=== PATIENT | male | born 1935 | race Caucasian/White ===

== ENCOUNTER 2020-05-09 15:52 | Inpatient (IN) ==
[2020-05-09] MEDS ORDERED: Ondansetron 4 MG/2 ML VIAL IVP PRN (19:14)
[2020-05-09] MEDS ORDERED: Naloxone 0.4 MG/ML INJ IVP PRN (19:14)
[2020-05-09] MEDS ORDERED: Perflutren Lipid Microsphere 1.3 ML in 0.9 % Sodium Chloride 8.7 ML IVP PRN (19:23)
[2020-05-09 20:10] LABS: Basophils % 0.3 %; Eosinophils % 0.2 %; Hematocrit 45.7 % (37.5-50.1); Hemoglobin 14.8 g/dL (12.9-16.9); Immature Granulocytes % 0.6 % (0-4); Lymphocytes # 1.4 K/mcL (0.6-4.6); Lymphocytes % 15.4 %; Mean Corpuscular HGB Conc 32.4 g/dL (31.6-35.5); Mean Corpuscular Hemoglobin 28.5 pg (28.0-33.3); Mean Corpuscular Volume 87.9 fL (83.0-100.0); Mean Platelet Volume 9.5 fL (9.4-12.4); Monocytes # 0.9 K/mcL (0.0-1.3); Monocytes % 9.9 %; Neutrophils # 6.5 K/mcL (1.6-8.9); Platelet Count 197 K/mcL (140-400); Segmented Neutrophils % 73.6 %; White Blood Count 8.8 K/mcL (4.3-11.1)
[2020-05-09 20:24] LABS: INR 4.9
[2020-05-09 20:28] LABS: BUN/Creatinine Ratio 22 (6-26); Blood Urea Nitrogen 24 mg/dL (8-23); Calcium 8.8 mg/dL (8.6-10.3); Carbon Dioxide 25 mEq/L (23-29); Chloride 102 mEq/L (98-107); Glucose 113 mg/dL (70-105); Osmolality,Calculated 283 (280-300); Potassium 4.8 mEq/L (3.5-5.1); Sodium 134 mEq/L (136-145); eGFR For African Americans > 60 (> 60); eGFR For Non-African Americans > 60 (> 60)
[2020-05-09] MEDS: *HR* OxyCODONE Immed Rel 5 MG TABLET PO PRN (22:00)
[2020-05-10] MEDS: Metoprolol XL (24 HR) Succ 25 MG TAB.ER.24H PO SCH (08:58)
[2020-05-10] MEDS: lisinopriL 10 MG TABLET PO SCH (08:58)
[2020-05-10] MEDS: Furosemide 40 MG TABLET PO SCH (08:58)
[2020-05-10] MEDS: *HR* OxyCODONE Immed Rel 5 MG TABLET PO PRN ×2 (09:13→16:11)
[2020-05-10] MEDS ORDERED: Chloraseptic Spray 177 ML BOTTLE MM PRN (09:22)
[2020-05-10] MEDS ORDERED: Benzonatate 100 MG CAPSULE PO PRN (09:22)
[2020-05-10] MEDS ORDERED: Saline Nasal Spray 44 ML BOTTLE NS PRN (09:22)
[2020-05-10] MEDS ORDERED: Isovue-370 500 ML BOTTLE IVP ONE ×2 (09:25→11:05)
[2020-05-10 10:06] LABS: White Blood Count 7.3 K/mcL (4.3-11.1)
[2020-05-10 10:07] LABS: Basophils % 0.4 %; Eosinophils # 0.1 K/mcL (0.0-0.6); Eosinophils % 1.4 %; Hematocrit 44.2 % (37.5-50.1); Hemoglobin 14.5 g/dL (12.9-16.9); Immature Granulocytes % 0.4 % (0-4); Lymphocytes # 1.4 K/mcL (0.6-4.6); Lymphocytes % 19.2 %; Mean Corpuscular HGB Conc 32.8 g/dL (31.6-35.5); Mean Corpuscular Volume 88.4 fL (83.0-100.0); Mean Platelet Volume 9.9 fL (9.4-12.4); Monocytes % 13.8 %; Neutrophils # 4.8 K/mcL (1.6-8.9); Platelet Count 217 K/mcL (140-400); Red Cell Distribution Width 14.2 % (11.5-14.5); Segmented Neutrophils % 64.8 %
[2020-05-10 10:26] LABS: Alanine Aminotransferase 15 Units/L (7-52); Albumin 3.3 g/dL (3.5-5.7); Albumin/Globulin Ratio 1.1 (1.1-2.2); Alkaline Phosphatase 76 Units/L (34-104); Aspartate Amino Transferase 17 Units/L (13-39); BUN/Creatinine Ratio 19 (6-26); Blood Urea Nitrogen 21 mg/dL (8-23); Calcium 8.4 mg/dL (8.6-10.3); Carbon Dioxide 24 mEq/L (23-29); Chloride 103 mEq/L (98-107); Globulin 2.9 g/dL (2.4-3.5); Glucose 117 mg/dL (70-105); Lactate Dehydrogenase 118 Units/L (140-271); Osmolality,Calculated 280 (280-300); Potassium 4.2 mEq/L (3.5-5.1); Sodium 133 mEq/L (136-145); Total Protein 6.2 g/dL (6.4-8.9); eGFR For African Americans > 60 (> 60); eGFR For Non-African Americans > 60 (> 60)
[2020-05-10 10:27] LABS: Prothrombin Time 57.7 Seconds (9.4-12.1)
[2020-05-10 10:28] LABS: INR 5.2
[2020-05-10 10:42] LABS: Ferritin 54 ng/mL (20-250)
[2020-05-10 10:45] LABS: C-Reactive Protein 30 mg/L (Less than 10)
[2020-05-10] MEDS: Ipratropium 1 PUFF INHALER IH SCH ×3 (10:52→22:40)
[2020-05-10] MEDS ORDERED: *HR* Phytonadione 5 MG TABLET PO ONE (16:22)
[2020-05-10] MEDS: Acetaminophen 325 MG TABLET PO PRN (19:44)
[2020-05-10] MEDS: Artificial Tears SOLN 15 ML BOTTLE BOTH EYES SCH ×2 (19:45→19:53)
[2020-05-10] MEDS: Melatonin 3 MG TABLET PO PRN (19:45)
[2020-05-11 00:42] LABS: Hematocrit 43.4 % (37.5-50.1); Mean Corpuscular HGB Conc 32.3 g/dL (31.6-35.5); Mean Corpuscular Hemoglobin 28.5 pg (28.0-33.3); Mean Corpuscular Volume 88.4 fL (83.0-100.0); Mean Platelet Volume 9.9 fL (9.4-12.4); Platelet Count 199 K/mcL (140-400); Red Blood Count 4.91 M/mcL (4.19-5.50); Red Cell Distribution Width 14.4 % (11.5-14.5)
[2020-05-11 00:50] LABS: INR 5.2; Prothrombin Time 57.3 Seconds (9.4-12.1)
[2020-05-11 01:05] LABS: BUN/Creatinine Ratio 16 (6-26); Blood Urea Nitrogen 18 mg/dL (8-23); Calcium 8.6 mg/dL (8.6-10.3); Carbon Dioxide 22 mEq/L (23-29); Chloride 103 mEq/L (98-107); Glucose 105 mg/dL (70-105); Osmolality,Calculated 276 (280-300); Phosphorous 3.3 mg/dL (2.7-4.5); Potassium 4.3 mEq/L (3.5-5.1); Sodium 132 mEq/L (136-145); eGFR For African Americans > 60 (> 60); eGFR For Non-African Americans > 60 (> 60)
[2020-05-11 01:20] LABS: Ferritin 58 ng/mL (20-250)
[2020-05-11 01:26] LABS: C-Reactive Protein 43 mg/L (Less than 10)
[2020-05-11] MEDS: Ipratropium 1 PUFF INHALER IH SCH ×2 (03:35→11:01)
[2020-05-11] MEDS: *HR* OxyCODONE Immed Rel 5 MG TABLET PO PRN ×2 (06:01→13:44)
[2020-05-11] MEDS ORDERED: *HR* Phytonadione 5 MG TABLET PO ONE (07:54)
[2020-05-11] MEDS: *HR* HYDROcodone/Acet 5/325 mg TABLET PO PRN ×2 (09:01→16:42)
[2020-05-11] MEDS: Metoprolol XL (24 HR) Succ 25 MG TAB.ER.24H PO SCH (09:01)
[2020-05-11] MEDS: Furosemide 40 MG TABLET PO SCH (09:01)
[2020-05-11] MEDS: lisinopriL 10 MG TABLET PO SCH (09:01)
[2020-05-11] MEDS: Multivit/Ca/Min/Fe/FA 1 TAB TABLET PO SCH (09:01)
[2020-05-11] MEDS: Artificial Tears SOLN 15 ML BOTTLE BOTH EYES SCH ×2 (09:03→20:52)
[2020-05-11] MEDS ORDERED: Ipratropium 1 PUFF INHALER IH PRN (14:10)
[2020-05-11 15:23] LABS: INR 2.9; Prothrombin Time 32.3 Seconds (9.4-12.1)
[2020-05-11] MEDS: Melatonin 3 MG TABLET PO PRN (20:51)
[2020-05-11] MEDS: Acetaminophen 325 MG TABLET PO PRN (20:52)
[2020-05-12 03:25] LABS: Hematocrit 43.1 % (37.5-50.1); Mean Corpuscular HGB Conc 32.5 g/dL (31.6-35.5); Mean Corpuscular Hemoglobin 28.5 pg (28.0-33.3); Mean Corpuscular Volume 87.8 fL (83.0-100.0); Mean Platelet Volume 10.1 fL (9.4-12.4); Platelet Count 193 K/mcL (140-400); Red Blood Count 4.91 M/mcL (4.19-5.50); Red Cell Distribution Width 14.1 % (11.5-14.5); White Blood Count 8.1 K/mcL (4.3-11.1)
[2020-05-12 03:26] LABS: INR 1.8; Prothrombin Time 20.1 Seconds (9.4-12.1)
[2020-05-12 03:43] LABS: BUN/Creatinine Ratio 18 (6-26); Blood Urea Nitrogen 21 mg/dL (8-23); Calcium 8.6 mg/dL (8.6-10.3); Carbon Dioxide 24 mEq/L (23-29); Chloride 99 mEq/L (98-107); Glucose 103 mg/dL (70-105); Magnesium 1.9 mg/dL (1.6-2.6); Osmolality,Calculated 273 (280-300); Phosphorous 3.9 mg/dL (2.7-4.5); Potassium 4.1 mEq/L (3.5-5.1); Sodium 130 mEq/L (136-145); eGFR For African Americans > 60 (> 60); eGFR For Non-African Americans 59 (> 60)
[2020-05-12] MEDS: *HR* HYDROcodone/Acet 5/325 mg TABLET PO PRN (05:02)
[2020-05-12] MEDS: Multivit/Ca/Min/Fe/FA 1 TAB TABLET PO SCH (08:33)
[2020-05-12] MEDS: Metoprolol XL (24 HR) Succ 25 MG TAB.ER.24H PO SCH (08:33)
[2020-05-12] MEDS: Furosemide 40 MG TABLET PO SCH (08:33)
[2020-05-12] MEDS: lisinopriL 10 MG TABLET PO SCH (08:33)
[2020-05-12] MEDS: Artificial Tears SOLN 15 ML BOTTLE BOTH EYES SCH ×3 (09:35→22:08)
[2020-05-12] MEDS ORDERED: Vancomycin 1,000 MG VIAL ONE (15:03)
[2020-05-12] MEDS ORDERED: Ethanol\\Acetic Acid\\Na Ace\\Ben 1,000 ML IRRIG.SOLN IR ONE (15:03)
[2020-05-12] MEDS ORDERED: CeFAZolin Syr 2,000MG/20 ML 2,000 MG/20 ML SYRINGE IVPB ONE (15:12)
[2020-05-12] MEDS ORDERED: Acetaminophen IV 1,000 MG/100 ML BAG IVPB ONE (15:26)
[2020-05-12] MEDS ORDERED: *HR* FentaNYL (PF) 100 MCG/2 ML VIAL ONE ×2 (15:28→17:07)
[2020-05-12] MEDS ORDERED: *HR* Propofol 200 MG/20 ML VIAL IVP ONE (15:28)
[2020-05-12] MEDS ORDERED: *HR* Rocuronium Bromide 50 MG/5 ML VIAL ONE (15:29)
[2020-05-12] MEDS ORDERED: Ondansetron 4 MG/2 ML VIAL ONE (15:57)
[2020-05-12] MEDS ORDERED: Sugammadex Sodium 200 MG/2 ML VIAL IV ONE (16:31)
[2020-05-12] MEDS ORDERED: Ondansetron 4 MG/2 ML VIAL IVP PRN ×3 (16:41→18:02)
[2020-05-12] MEDS ORDERED: *HR* OxyCODONE Immed Rel 5 MG TABLET PO PRN ×2 (16:41→18:02)
[2020-05-12] MEDS ORDERED: *HR* FentaNYL (PF) 100 MCG/2 ML VIAL IVP PRN (17:04)
[2020-05-12] MEDS ORDERED: Chloraseptic Spray 177 ML BOTTLE MM PRN (18:02)
[2020-05-12] MEDS ORDERED: MOM Conc 10 ML UD.LIQ PO PRN (18:02)
[2020-05-12] MEDS ORDERED: Saline Nasal Spray 44 ML BOTTLE NS PRN (18:02)
[2020-05-12] MEDS ORDERED: Melatonin 3 MG TABLET PO PRN (18:02)
[2020-05-12] MEDS ORDERED: Ipratropium 1 PUFF INHALER IH PRN (18:02)
[2020-05-12] MEDS ORDERED: *HR* Warfarin 5 MG TABLET PO SCH (18:02)
[2020-05-12] MEDS ORDERED: Benzonatate 100 MG CAPSULE PO PRN (18:02)
[2020-05-12] MEDS ORDERED: *HR* Promethazine 25 MG/ML VIAL IM PRN (18:02)
[2020-05-12] MEDS ORDERED: Acetaminophen 325 MG TABLET PO PRN (18:02)
[2020-05-12] MEDS ORDERED: Naloxone 0.4 MG/ML INJ IVP PRN ×2 (18:02)
[2020-05-12] MEDS ORDERED: Sennosides 8.6 MG TABLET PO PRN (18:02)
[2020-05-12 18:15] LABS: Hematocrit 44.5 % (37.5-50.1)
[2020-05-12] MEDS: *HR* Enoxaparin 30 MG/0.3 ML SYRINGE SQ SCH (18:56)
[2020-05-12] MEDS: Ascorbic Acid 500 MG TABLET PO SCH (18:56)
[2020-05-12] MEDS ORDERED: Ringers Solution, Lactated 500 ML IVC ONE (19:00)
[2020-05-12] MEDS: CeFAZolin 2 GM/120 ML BAG IVPB SCH (21:57)
[2020-05-13] MEDS ORDERED: Acetaminophen IV 1,000 MG/100 ML BAG IVPB PRN (01:01)
[2020-05-13 03:03] LABS: INR 1.4
[2020-05-13 06:03] LABS: Basophils % 0.1 %; Eosinophils % 0.1 %; Hematocrit 37.6 % (37.5-50.1); Immature Granulocytes % 0.6 % (0-4); Lymphocytes # 1.6 K/mcL (0.6-4.6); Lymphocytes % 11.7 %; Mean Corpuscular HGB Conc 32.2 g/dL (31.6-35.5); Mean Corpuscular Hemoglobin 28.3 pg (28.0-33.3); Mean Corpuscular Volume 88.1 fL (83.0-100.0); Mean Platelet Volume 9.8 fL (9.4-12.4); Monocytes # 1.7 K/mcL (0.0-1.3); Monocytes % 12.3 %; Platelet Count 224 K/mcL (140-400); Red Blood Count 4.27 M/mcL (4.19-5.50); Red Cell Distribution Width 14.1 % (11.5-14.5); Segmented Neutrophils % 75.2 %
[2020-05-13 06:13] LABS: Neutrophils # 10.5 K/mcL (1.6-8.9); White Blood Count 13.9 K/mcL (4.3-11.1)
[2020-05-13 06:14] LABS: Hemoglobin 12.1 g/dL (12.9-16.9)
[2020-05-13 06:18] LABS: BUN/Creatinine Ratio 26 (6-26); Blood Urea Nitrogen 34 mg/dL (8-23); Calcium 8.3 mg/dL (8.6-10.3); Carbon Dioxide 24 mEq/L (23-29); Chloride 98 mEq/L (98-107); Glucose 136 mg/dL (70-105); Osmolality,Calculated 278 (280-300); Potassium 4.5 mEq/L (3.5-5.1); Sodium 129 mEq/L (136-145); eGFR For African Americans > 60 (> 60); eGFR For Non-African Americans 52 (> 60)
[2020-05-13] MEDS: CeFAZolin 2 GM/120 ML BAG IVPB SCH (06:51)
[2020-05-13] MEDS: *HR* Enoxaparin 30 MG/0.3 ML SYRINGE SQ SCH ×2 (06:51→17:34)
[2020-05-13] MEDS: Ringers Solution, Lactated 1,000 ML IVC SCH (06:52)
[2020-05-13] MEDS: Multivit/Ca/Min/Fe/FA 1 TAB TABLET PO SCH (08:51)
[2020-05-13] MEDS: Artificial Tears SOLN 15 ML BOTTLE BOTH EYES SCH ×2 (08:51→19:49)
[2020-05-13] MEDS: Ascorbic Acid 500 MG TABLET PO SCH ×2 (08:51→17:34)
[2020-05-13] MEDS ORDERED: Furosemide 40 MG TABLET PO SCH (09:00)
[2020-05-13] MEDS ORDERED: Multivit/Ca/Min/Fe/FA 1 TAB TABLET PO SCH (09:00)
[2020-05-13] MEDS ORDERED: Metoprolol XL (24 HR) Succ 25 MG TAB.ER.24H PO SCH (09:00)
[2020-05-13] MEDS ORDERED: lisinopriL 10 MG TABLET PO SCH ×2 (09:00→11:00)
[2020-05-13] MEDS: Calcium Gluconate 1gm/50mL 1 GM/50 ML BAG IVPB SCH ×2 (10:03→10:32)
[2020-05-13] MEDS ORDERED: *HR* Warfarin 5 MG TABLET PO SCH (11:00)
[2020-05-13 14:04] LABS: Hematocrit 36.2 % (37.5-50.1); Hemoglobin 11.6 g/dL (12.9-16.9)
[2020-05-13] MEDS: Acetaminophen IV 1,000 MG/100 ML BAG IVPB PRN (15:18)
[2020-05-13] MEDS: *HR* Warfarin 5 MG TABLET PO SCH (17:34)
[2020-05-13] MEDS ORDERED: *HR* Warfarin 7.5 MG TABLET PO ONE (18:00)
[2020-05-13] MEDS ORDERED: Warfarin perPT PO PRN (18:00)
[2020-05-13] MEDS: *HR* HYDROcodone/Acet 5/325 mg TABLET PO PRN (19:49)
[2020-05-13] MEDS ORDERED: *HR* Metoprolol 5 MG/5 ML VIAL IVP STA (22:18)
[2020-05-13] MEDS: Metoprolol XL (24 HR) Succ 25 MG TAB.ER.24H PO SCH (23:10)
[2020-05-14] MEDS: Acetaminophen IV 1,000 MG/100 ML BAG IVPB PRN (00:36)
[2020-05-14] MEDS ORDERED: 0.9 % Sodium Chloride 500 ML IVC ONE (01:45)
[2020-05-14] MEDS: DilTIAZem 50 MG/50 ML IV.SOLN IVC SCH ×2 (02:13→09:07)
[2020-05-14] MEDS: *HR* HYDROcodone/Acet 5/325 mg TABLET PO PRN ×2 (02:31→10:56)
[2020-05-14 02:45] LABS: Hemoglobin 10.3 g/dL (12.9-16.9); Mean Corpuscular HGB Conc 33.2 g/dL (31.6-35.5); Mean Corpuscular Hemoglobin 28.9 pg (28.0-33.3); Mean Corpuscular Volume 86.8 fL (83.0-100.0); Platelet Count 214 K/mcL (140-400); Red Blood Count 3.57 M/mcL (4.19-5.50); Red Cell Distribution Width 13.8 % (11.5-14.5); White Blood Count 14.6 K/mcL (4.3-11.1)
[2020-05-14 02:51] LABS: INR 1.6; Prothrombin Time 17.9 Seconds (9.4-12.1)
[2020-05-14 03:05] LABS: % Iron Saturation 13 % (20-55); BUN/Creatinine Ratio 30 (6-26); Blood Urea Nitrogen 35 mg/dL (8-23); Calcium 8.6 mg/dL (8.6-10.3); Carbon Dioxide 23 mEq/L (23-29); Chloride 98 mEq/L (98-107); Glucose 119 mg/dL (70-105); Iron 28 mcg/dL (65-175); Magnesium 1.9 mg/dL (1.6-2.6); Osmolality,Calculated 277 (280-300); Phosphorous 2.9 mg/dL (2.7-4.5); Potassium 4.5 mEq/L (3.5-5.1); Sodium 129 mEq/L (136-145); Transferrin 158 mg/dL (203-362); eGFR For African Americans > 60 (> 60); eGFR For Non-African Americans 60 (> 60)
[2020-05-14 03:20] LABS: Ferritin 198 ng/mL (20-250)
[2020-05-14 03:27] LABS: Folate 10.9 ng/mL (3.0-16.0)
[2020-05-14] MEDS ORDERED: 0.9 % Sodium Chloride 500 ML IV ONE (04:18)
[2020-05-14] MEDS ORDERED: 0.9 % Sodium Chloride 1,000 ML ONE (04:22)
[2020-05-14] MEDS: *HR* Enoxaparin 30 MG/0.3 ML SYRINGE SQ SCH ×2 (07:09→17:54)
[2020-05-14] MEDS ORDERED: Metoprolol XL (24 HR) Succ 25 MG TAB.ER.24H PO SCH ×2 (09:00→15:00)
[2020-05-14] MEDS: Multivit/Ca/Min/Fe/FA 1 TAB TABLET PO SCH (09:08)
[2020-05-14] MEDS: Ascorbic Acid 500 MG TABLET PO SCH ×2 (09:08→17:57)
[2020-05-14] MEDS: Artificial Tears SOLN 15 ML BOTTLE BOTH EYES SCH ×2 (09:09→21:38)
[2020-05-14] MEDS: Ringers Solution, Lactated 1,000 ML IVC SCH ×2 (09:09→21:38)
[2020-05-14] MEDS ORDERED: Cyanocobalamin (B-12) 1,000 MCG/ML VIAL SQ ONE (09:10)
[2020-05-14] MEDS: Metoprolol XL (24 HR) Succ 25 MG TAB.ER.24H PO SCH (09:10)
[2020-05-14] MEDS ORDERED: *HR* Metoprolol 5 MG/5 ML VIAL IVP PRN (17:01)
[2020-05-14] MEDS: *HR* Warfarin 5 MG TABLET PO SCH (17:57)
[2020-05-15] MEDS: *HR* Enoxaparin 30 MG/0.3 ML SYRINGE SQ SCH (05:52)
[2020-05-15] MEDS: *HR* HYDROcodone/Acet 5/325 mg TABLET PO PRN (06:39)
[2020-05-15 06:52] LABS: Basophils % 0.2 %; Eosinophils % 0.4 %; Hematocrit 21.6 % (37.5-50.1); Lymphocytes # 1.6 K/mcL (0.6-4.6); Lymphocytes % 15.8 %; Mean Corpuscular HGB Conc 32.9 g/dL (31.6-35.5); Mean Corpuscular Hemoglobin 28.9 pg (28.0-33.3); Mean Corpuscular Volume 87.8 fL (83.0-100.0); Mean Platelet Volume 9.6 fL (9.4-12.4); Monocytes # 1.7 K/mcL (0.0-1.3); Monocytes % 17.1 %; Neutrophils # 6.4 K/mcL (1.6-8.9); Platelet Count 172 K/mcL (140-400); Red Blood Count 2.46 M/mcL (4.19-5.50); Red Cell Distribution Width 14.2 % (11.5-14.5); Segmented Neutrophils % 65.5 %; White Blood Count 9.8 K/mcL (4.3-11.1)
[2020-05-15 06:53] LABS: INR 1.9; Prothrombin Time 21.2 Seconds (9.4-12.1)
[2020-05-15 06:57] LABS: Hemoglobin 7.1 g/dL (12.9-16.9)
[2020-05-15 07:03] LABS: BUN/Creatinine Ratio 29 (6-26); Blood Urea Nitrogen 25 mg/dL (8-23); Calcium 7.7 mg/dL (8.6-10.3); Carbon Dioxide 25 mEq/L (23-29); Chloride 98 mEq/L (98-107); Glucose 113 mg/dL (70-105); Magnesium 1.7 mg/dL (1.6-2.6); Osmolality,Calculated 273 (280-300); Potassium 4.2 mEq/L (3.5-5.1); Sodium 129 mEq/L (136-145); eGFR For African Americans > 60 (> 60); eGFR For Non-African Americans > 60 (> 60)
[2020-05-15] MEDS ORDERED: Cyanocobalamin (B-12) 1,000 MCG/ML VIAL SQ ONE (08:32)
[2020-05-15] MEDS: Multivit/Ca/Min/Fe/FA 1 TAB TABLET PO SCH (08:38)
[2020-05-15] MEDS: Ascorbic Acid 500 MG TABLET PO SCH ×2 (08:39→17:13)
[2020-05-15] MEDS: Artificial Tears SOLN 15 ML BOTTLE BOTH EYES SCH ×2 (08:45→19:50)
[2020-05-15] MEDS ORDERED: *HR* Warfarin 2.5 MG TABLET PO SCH ×3 (11:01→18:00)
[2020-05-15] MEDS ORDERED: 0.9 % Sodium Chloride 250 ML ONE (13:10)
[2020-05-15] MEDS ORDERED: Piperacillin/Tazobactam 3.375 GM in 0.9 % Sodium Chloride Mini Bag 100 ML IVPB ONE (14:19)
[2020-05-15] MEDS ORDERED: Isovue-370 500 ML BOTTLE IVP ONE (15:22)
[2020-05-15 18:20] LABS: Hematocrit 26.5 % (37.5-50.1)
[2020-05-15 18:23] LABS: Hemoglobin 8.7 g/dL (12.9-16.9)
[2020-05-15] MEDS: DilTIAZem 50 MG/50 ML IV.SOLN IVC SCH (19:48)
[2020-05-15 19:50] VITALS: BP 113/62
[2020-05-16] MEDS ORDERED: Cyanocobalamin (B-12) 1,000 MCG TABLET PO SCH (09:00)
== END 2020-05-15 20:44 | disposition short-term general hospital (02) | DRG 522 ==
LOC: 3NENU → SUATTDRO 18:20 → 3NENU 20:56 → SUATTDRO 05-10 16:49
PROVIDERS: ADMIT Internal Medicine; ATTEND Student in an Organized Health Care Education/Training Program